=== PATIENT | female | born 1990 | race Caucasian/White ===

== ENCOUNTER 2016-10-09 06:36 | Inpatient (IN) | payer OTHER ==
[~2016-10-09] VITALS: Ht 167.6 cm; Wt 88.1 kg
--- NOTE | ~2016-10-09 | OR ---
PATIENT'S NAME: CAMRON ARENAS [facility] AGE: 26 [address] ROOM: [address] [address] LOCATION: GOBS ADMIT DATE: 10/09/2016 OR/Procedure Report DISCHARGE DATE: FAMILY PHYSICIAN: Rocio Hammer MD ATTENDING PHYSICIAN: Rocio Hammer SURGEON: Rocio Hammer MD HELP DESK REPRESENTATIVE: DATE OF PROCEDURE: 10/10/2016 DIAGNOSES: 1. Spontaneous vaginal delivery of a term male. 2. Prostin gel induction. 3. Pitocin augmentation. 4. Artificial rupture of membranes. 5. Two vessel umbilical cord. HOSPITAL COURSE: The patient is a 26-year-old, 4, para 3, at 40 and 6/7th weeks. She was brought in yesterday for Prostin gel induction, secondary to being postdates. Prostin gel was placed x1 and Pitocin was began per protocol. The patient got up to 21 milliunits of Pitocin. She remained 4 cm. At approximately 2300 hours, Pitocin was shut off for the patient to rest and eat etc. Pitocin was rebegan this morning at approximately 0700 hours. Pitocin was increased per protocol. She remained 4 cm until approximately 1600 hours this afternoon when cervix did start to make some cervical change. At approximately 1800 hours, artificial rupture of membranes was done when the patient was 5 to 6 cm. Clear fluid was a result. The patient progressed to 8 and 9 and complete. With expulsion efforts, baby was delivered in an OA presentation. There was a cord on the chest, but did not ensurface on the neck or chest. Baby was delivered without difficulty. Baby was suctioned, cord was doubly clamped, and cord was cut by the father. Cord blood was obtained. Placenta delivered spontaneously intact. There was a 2-vessel cord; so, will be sent to pathology for evaluation. Baby was a male weighing 8 pounds, 4 ounces. scores 8 at one minute and 9 at five minutes. At this time, both mom and baby are doing well. MD ROXANA JEROMEM/modl /[id number] d: 10/11/16 0126 t: 10/31/16 1520, OPERATIVE SUMMARY
[2016-10-09] MEDS ORDERED: TYLENOL325 MG PO (08:17)
[2016-10-09] MEDS ORDERED: ZOFRAN4 MG PO (08:17)
[2016-10-09] MEDS ORDERED: TUMS200 MG PO (08:18)
[2016-10-09 08:28] LABS: BASOPHIL % 0.3 %; EOSINOPHIL % 0.6 %; HEMATOCRIT 32.9 % (33.0-46.0); HEMOGLOBIN 10.3 g/dL (11.0-15.0); IMMATURE GRANULOCYTE % 0.6 %; LYMPHOCYTE # 1.4 K/uL (0.8-4.0); LYMPHOCYTE % 18.9 %; MCH 30.4 pg (27.0-34.0); MCHC 31.3 gm/dL (32.0-36.5); MCV 97.1 fl (83.0-98.0); MONOCYTE # 0.6 K/uL (0.0-1.0); MONOCYTE % 7.9 %; MPV 9.3 fl (9.4-12.4); NEUTROPHIL # (ANC) 5.2 K/uL (1.8-7.8); NEUTROPHIL % 71.7 %; NRBC % 0 /100WBC (0-0.00); PLATELET COUNT 197 K/uL (150-450); RBC 3.39 M/uL (3.50-5.00); RDW-CV 14.5 % (11.9-14.6); WBC 7.3 K/uL (4.0-11.0)
--- NOTE | 2016-10-09 17:54 | NUR ---
10/09/16:0745 Iv Pitocin @ 17 mu @ 1800. Had PGE2 in am. Has wireless monitoring on. LTV moderate. Occ. prolonged fhr accels. FHR baseline 110-120's. VSS,afebrile.
--- NOTE | 2016-10-10 05:39 | NUR ---
Last VS: T:98.3 P:90 R: 16 BP: 118/77 Pain ratin. Last pain med: None given FHT: 120's, moderate variability, with accels Dilatation: 4 Effacement 60%: Station: -2 Significant event: Reached 23mU/min of Pitocin per doctor order. Baby still ballotable. Pitocin decreased to 11mU/min. Pitocin turned off at 2325 per doctor order due to baby still ballotable. Patient took a bath and ate. Aleksandra irregularly, every 2-10 minutes. LR running at 125mL/hr. Restart Pitocin at 0700.
[2016-10-11 04:10] LABS: BASOPHIL % 0.2 %; EOSINOPHIL % 0.2 %; HEMATOCRIT 29.3 % (33.0-46.0); HEMOGLOBIN 9.2 g/dL (11.0-15.0); IMMATURE GRANULOCYTE % 0.2 %; LYMPHOCYTE % 12.6 %; MCH 30.4 pg (27.0-34.0); MCHC 31.4 gm/dL (32.0-36.5); MCV 96.7 fl (83.0-98.0); MONOCYTE # 0.6 K/uL (0.0-1.0); MONOCYTE % 7.4 %; MPV 9.3 fl (9.4-12.4); NEUTROPHIL # (ANC) 6.4 K/uL (1.8-7.8); NEUTROPHIL % 79.4 %; NRBC % 0 /100WBC (0-0.00); PLATELET COUNT 184 K/uL (150-450); RBC 3.03 M/uL (3.50-5.00); RDW-CV 14.4 % (11.9-14.6); WBC 8.1 K/uL (4.0-11.0)
--- NOTE | 2016-10-11 04:43 | NUR ---
Last VS: T:98.3 P:90 R: 16 BP: 118/77 Pain ratin Last pain med: NONE GIVEN Medicated at: Effective: Breasts: , Nipples: Fundus: FIRM,MIDLINE ,1 BELOW Lochia: SM,RUBRA Epis/Perineum: APPROX, , Voiding well: Y Significant event: PT DOING WELL. HAS BEEN UP AND TIDIED. VERY INDPENDENT WITH CARES. PLANS FOR DISMISSAL THIS EVENING
== END 2016-10-11 23:20 | disposition disaster alternative care site (69) | DRG 775 ==
LOC: GOBM 06:36 → GOBS 06:36 → GOBM 23:04 → GOBS 23:05
PROVIDERS: ADMIT Family Medicine
DX: O48.0 Post-term pregnancy (principal); Z37.0 Single live birth; Z3A.40 40 weeks gestation of pregnancy
CPT/HCPCS: J2001; J2590; J7120